=== PATIENT | female | born 1940 | race Caucasian/White ===

== ENCOUNTER 2017-10-16 23:49 | Emergency (ER) | payer MEDICARE ==
[~2017-10-16 23:49] MED LIST: DOXE10CA2 PO; ESTR0.5T PO; GABA-531 PO; LEVO100T12 PO; VALS1TAB77 PO
[2017-10-17] MEDS ORDERED: OSELTAMIVIR PHOSPHATE 75 MG CAP ONE (00:19)
== END 2017-10-17 00:45 | disposition home or self-care (01) ==
LOC: EDH 23:49
DX: J11.1 Influenza due to unidentified influenza virus with other respiratory manifestations (principal); I10 Essential (primary) hypertension; E03.9 Hypothyroidism, unspecified; Z90.710 Acquired absence of both cervix and uterus; Z98.890 Other specified postprocedural states
CPT/HCPCS: 71046

== ENCOUNTER → 2023-05-11 | Outpatient (CLI) | payer MEDICARE ==
[~2023-05-11] MED LIST changes: +ASPI-1197 PO; +CHOL100018 PO; +LUTE20TA PO; +MELA5CAP PO
== END | disposition home or self-care (01) ==
LOC: RAH 13:48
PROVIDERS: ATTEND Internal Medicine
DX: I08.8 Other rheumatic multiple valve diseases (principal); I49.9 Cardiac arrhythmia, unspecified
CPT/HCPCS: 93306